=== PATIENT | female | born 1930 | race Caucasian/White ===

== ENCOUNTER 2016-11-30 17:34 | Inpatient (IN) | payer OTHER, MEDICARE ==
[~2016-11-30] VITALS: Ht 160 cm; Wt 82.4 kg
[~2016-11-30 17:34] MED LIST: ATARAX,VISTARIL50 MG PO; AZITHROMYCIN250 MG1 PO; DILTIAZEM 24HR180 MG PO; DILTIAZEM 24HR240 MG PO; ELIQUIS5 MG PO; FUROSEMIDE20 MG PO; MECLIZINE HCL12.5 M1 PO; PAXIL20 MG PO; PAXIL30 MG PO; PREDNISONE20 MG PO; VALIUM2 MG PO
[2016-11-30 18:21] LABS: HEMATOCRIT 40.7 % (36.0-46.0); MCHC 32.7 G/DL (30.0-36.0); MCV 91.9 FL (83-99); MEAN PLAT.VOLUME 10.2 uM^3 (9.5-12.4); PLATELET COUNT 252 K/uL (156-360); RBC DIS.WIDTH-CV 14.5 % (11.8-14.6); RBC DIS.WIDTH-SD 47.5 % (39-53); RED BLOOD COUNT 4.43 M/uL (3.80-5.20); WHITE BLOOD COUNT 11.1 K/uL (4.1-10.2)
[2016-11-30 18:23] LABS: CARBON DIOXIDE (BICARBONATE) 26.6 MEQ/L (20-31)
[2016-11-30 18:32] LABS: CHLORIDE 102 mEq/L (99-109); POTASSIUM 3.6 mEq/L (3.7-5.4); SODIUM 137 mEq/L (136-147)
[2016-11-30 18:34] LABS: GLUCOSE 198 mg/dL (70-99)
[2016-11-30 18:35] LABS: ANION GAP 11 MEQ/L (2-14)
[2016-11-30 18:38] LABS: GFR ESTIMATE (CALCULATED) > 59 mL/min/
[2016-11-30 18:39] LABS: UREA NITROGEN (BUN) 14 mg/dL (9-23)
[2016-11-30 18:43] LABS: TROP-I INTERPRETATION NEGATIVE; TROPONIN-I < 0.01 ng/mL (0.0-0.30)
[2016-11-30] MEDS ORDERED: DILTIAZEM 24HR180 MG PO (20:11)
[2016-11-30] MEDS ORDERED: PAXIL20 MG PO (20:11)
[2016-12-01 04:23] LABS: ADD MIUA? YES; BILIRUBIN NEGATIVE; BLOOD MODERATE; COLOR YELLOW ((YELLOW)); GLUCOSE (STRIP) NEGATIVE; KETONES NEGATIVE; LEUKOCYTES SMALL; NITRITE NEGATIVE; PROTEIN (STRIP) NEGATIVE; SPECIFIC GRAVITY 1.009 (1.000-1.030); UROBILINOGEN 0.2 MG/DL (0.2-1.0)
[2016-12-01 05:20] LABS: BACTERIA RARE; CASTS NONE SEEN /LPF; EPITHELIAL CELLS RARE; MUCUS NONE SEEN; RED BLOOD CELLS 0-5 /HPF (0-5); UCUL ADDED? NO
[2016-12-01 05:21] LABS: AMORPHOUS PHOSPHATE CRYSTALS RARE; CRYSTALS PRESENT
[2016-12-01 06:45] LABS: ANION GAP 10 MEQ/L (2-14); CHLORIDE 108 MEQ/L (99-109); GFR ESTIMATE (CALCULATED) > 59 mL/min/; GLUCOSE 172 mg/dL (70-99); POTASSIUM 3.3 MEQ/L (3.7-5.4); SAMPLE HEMOLYSIS CHECK 0; SAMPLE ICTERIC CHECK 0; SAMPLE LIPEMIA CHECK 0; SODIUM 139 MEQ/L (136-147); UREA NITROGEN (BUN) 11 mg/dL (9-23)
[2016-12-01 17:19] VITALS: BP 128/80
[2016-12-01 19:49] VITALS: BP 116/62
[2016-12-01 23:37] VITALS: BP 152/82
[2016-12-02 06:37] LABS: EOSINOPHIL (%) 0 % (0-5); HEMATOCRIT 35.8 % (36.0-46.0); IMMATURE GRANULOCYTE (%) 0.4 % (0.0-0.7); LYMPHOCYTE COUNT 1.1 K/uL (1.0-2.8); MCHC 31.8 G/DL (30.0-36.0); MCV 94.2 FL (83-99); MEAN PLAT.VOLUME 10.7 uM^3 (9.5-12.4); MONOCYTE (%) 10.3 % (3-12); MONOCYTE COUNT 1.1 K/uL (0-0.8); NEUTROPHIL (%) 78.9 % (45-76); NEUTROPHIL COUNT 8.8 K/uL (1.8-6.4); PLATELET COUNT 222 K/uL (156-360); RBC DIS.WIDTH-SD 51.8 % (39-53); WHITE BLOOD COUNT 11.1 K/uL (4.1-10.2)
[2016-12-02 07:18] LABS: ANION GAP 8 MEQ/L (2-14); CHLORIDE 112 MEQ/L (99-109); GFR ESTIMATE (CALCULATED) > 59 mL/min/; GLUCOSE 139 mg/dL (70-99); SAMPLE HEMOLYSIS CHECK 0; SAMPLE ICTERIC CHECK 0; SAMPLE LIPEMIA CHECK 0; SODIUM 141 MEQ/L (136-147); UREA NITROGEN (BUN) 14 mg/dL (9-23)
[2016-12-02 07:22] LABS: POTASSIUM 4.5 MEQ/L (3.7-5.4)
[2016-12-02 07:56] VITALS: BP 120/94
[2016-12-02 12:38] VITALS: BP 109/67
[2016-12-02 15:21] VITALS: BP 112/68
[2016-12-02 19:44] VITALS: BP 121/77
[2016-12-03 00:31] VITALS: BP 128/95
[2016-12-03 04:30] VITALS: BP 129/94
[2016-12-03 07:09] LABS: EOSINOPHIL (%) 0.3 % (0-5); HEMATOCRIT 38.2 % (36.0-46.0); IMMATURE GRANULOCYTE (%) 0.4 % (0.0-0.7); IMMATURE GRANULOCYTE COUNT 0.1 K/uL; LYMPHOCYTE COUNT 2.6 K/uL (1.0-2.8); MCH 29.2 PG (29.0-34.0); MCHC 31.2 G/DL (30.0-36.0); MCV 93.9 FL (83-99); MEAN PLAT.VOLUME 10.5 uM^3 (9.5-12.4); MONOCYTE (%) 10.5 % (3-12); MONOCYTE COUNT 1.5 K/uL (0-0.8); NEUTROPHIL (%) 70.3 % (45-76); NEUTROPHIL COUNT 9.8 K/uL (1.8-6.4); PLATELET COUNT 264 K/uL (156-360); RBC DIS.WIDTH-CV 15.1 % (11.8-14.6); RBC DIS.WIDTH-SD 52.4 % (39-53); RED BLOOD COUNT 4.07 M/uL (3.80-5.20); WHITE BLOOD COUNT 13.9 K/uL (4.1-10.2)
[2016-12-03 07:36] LABS: ANION GAP 9 MEQ/L (2-14); CHLORIDE 106 MEQ/L (99-109); GFR ESTIMATE (CALCULATED) > 59 mL/min/; POTASSIUM 4.1 MEQ/L (3.7-5.4); SAMPLE HEMOLYSIS CHECK 0; SAMPLE ICTERIC CHECK 0; SAMPLE LIPEMIA CHECK 0; SODIUM 142 MEQ/L (136-147); UREA NITROGEN (BUN) 19 mg/dL (9-23)
[2016-12-03 07:38] LABS: GLUCOSE 93 mg/dL (70-99)
[2016-12-03 07:50] VITALS: BP 123/86
[2016-12-03 11:44] VITALS: BP 160/84
[2016-12-03 15:11] VITALS: BP 112/67
[2016-12-03 19:00] VITALS: BP 106/78
[2016-12-04] VITALS (7 sets, daily range): BP systolic 97–131; BP diastolic 55–87
[2016-12-04 13:02] LABS: ALKALINE PHOSPHATASE 70 IU/L (3-129); ANION GAP 14 MEQ/L (2-14); CHLORIDE 99 MEQ/L (99-109); GFR ESTIMATE (CALCULATED) > 59 mL/min/; GLUCOSE 125 mg/dL (70-99); SAMPLE HEMOLYSIS CHECK 0; SAMPLE ICTERIC CHECK 0; SAMPLE LIPEMIA CHECK 0; SODIUM 140 MEQ/L (136-147); TOTAL BILIRUBIN 0.4 MG/DL (0.0-1.0); UREA NITROGEN (BUN) 17 mg/dL (9-23)
[2016-12-05 04:44] VITALS: BP 100/57
[2016-12-05 06:48] LABS: HEMATOCRIT 38.3 % (36.0-46.0); MCH 29.4 PG (29.0-34.0); MCHC 31.3 G/DL (30.0-36.0); MCV 93.9 FL (83-99); MEAN PLAT.VOLUME 10.6 uM^3 (9.5-12.4); PLATELET COUNT 284 K/uL (156-360); RBC DIS.WIDTH-CV 14.7 % (11.8-14.6); RBC DIS.WIDTH-SD 50.6 % (39-53); RED BLOOD COUNT 4.08 M/uL (3.80-5.20); WHITE BLOOD COUNT 11.8 K/uL (4.1-10.2)
[2016-12-05 07:31] VITALS: BP 118/66
[2016-12-05 07:37] LABS: EOSINOPHIL (%) 0.9 % (0-5); EOSINOPHIL COUNT 0.1 K/uL (0-0.3); HEMATOLOGY COMMENT 1 SMEAR COMPATIBLE; IMMATURE GRANULOCYTE (%) 2.2 % (0.0-0.7); IMMATURE GRANULOCYTE COUNT 0.3 K/uL; LYMPHOCYTE COUNT 3.4 K/uL (1.0-2.8); MONOCYTE (%) 10.3 % (3-12); MONOCYTE COUNT 1.2 K/uL (0-0.8); NEUTROPHIL (%) 57.4 % (45-76); NEUTROPHIL COUNT 6.7 K/uL (1.8-6.4); USER ID CCL
[2016-12-05 11:49] VITALS: BP 111/74
[2016-12-05 15:26] VITALS: BP 102/64
[2016-12-05 19:00] VITALS: BP 116/62
[2016-12-05 23:00] VITALS: BP 93/55
[2016-12-06 03:00] VITALS: BP 123/71
[2016-12-06 06:12] LABS: HEMATOCRIT 37.6 % (36.0-46.0); MCH 29.3 PG (29.0-34.0); MCHC 31.1 G/DL (30.0-36.0); MEAN PLAT.VOLUME 10.3 uM^3 (9.5-12.4); PLATELET COUNT 297 K/uL (156-360); RBC DIS.WIDTH-CV 14.8 % (11.8-14.6); RBC DIS.WIDTH-SD 50.7 % (39-53); WHITE BLOOD COUNT 11.4 K/uL (4.1-10.2)
[2016-12-06 06:28] LABS: EOSINOPHIL (%) 1.4 % (0-5); EOSINOPHIL COUNT 0.2 K/uL (0-0.3); IMMATURE GRANULOCYTE COUNT 0.2 K/uL; LYMPHOCYTE COUNT 3.6 K/uL (1.0-2.8); MONOCYTE (%) 11.3 % (3-12); MONOCYTE COUNT 1.3 K/uL (0-0.8); NEUTROPHIL (%) 53.7 % (45-76); NEUTROPHIL COUNT 6.1 K/uL (1.8-6.4)
[2016-12-06 06:46] LABS: ALKALINE PHOSPHATASE 55 IU/L (3-129); ANION GAP 10 MEQ/L (2-14); CHLORIDE 99 MEQ/L (99-109); GFR ESTIMATE (CALCULATED) > 59 mL/min/; POTASSIUM 3.7 MEQ/L (3.7-5.4); SAMPLE HEMOLYSIS CHECK 0; SAMPLE ICTERIC CHECK 0; SAMPLE LIPEMIA CHECK 0; SODIUM 144 MEQ/L (136-147); UREA NITROGEN (BUN) 14 mg/dL (9-23)
[2016-12-06 06:48] LABS: GLUCOSE 86 mg/dL (70-99); TOTAL BILIRUBIN 0.3 MG/DL (0.0-1.0)
[2016-12-06 08:10] VITALS: BP 120/90
[2016-12-06 12:10] VITALS: BP 116/70
[2016-12-06 19:30] VITALS: BP 142/91
[2016-12-06 23:00] VITALS: BP 141/62
[2016-12-07 03:30] VITALS: BP 116/59
[2016-12-07 05:29] LABS: HEMATOCRIT 37.9 % (36.0-46.0); MCH 29.4 PG (29.0-34.0); MCHC 31.1 G/DL (30.0-36.0); MCV 94.3 FL (83-99); PLATELET COUNT 320 K/uL (156-360); RBC DIS.WIDTH-CV 14.7 % (11.8-14.6); RBC DIS.WIDTH-SD 50.3 % (39-53); RED BLOOD COUNT 4.02 M/uL (3.80-5.20)
[2016-12-07 06:05] LABS: ANION GAP 8 MEQ/L (2-14); CHLORIDE 100 MEQ/L (99-109); GFR ESTIMATE (CALCULATED) > 59 mL/min/; GLUCOSE 90 mg/dL (70-99); SAMPLE HEMOLYSIS CHECK 1; SAMPLE ICTERIC CHECK 0; SAMPLE LIPEMIA CHECK 0; SODIUM 143 MEQ/L (136-147); UREA NITROGEN (BUN) 16 mg/dL (9-23)
[2016-12-07 06:11] LABS: POTASSIUM 4.8 MEQ/L (3.7-5.4)
[2016-12-07 06:13] LABS: EOSINOPHIL (%) 0.8 % (0-5); EOSINOPHIL COUNT 0.1 K/uL (0-0.3); IMMATURE GRANULOCYTE (%) 2.7 % (0.0-0.7); IMMATURE GRANULOCYTE COUNT 0.4 K/uL; MONOCYTE (%) 10.4 % (3-12); MONOCYTE COUNT 1.4 K/uL (0-0.8); NEUTROPHIL (%) 62.8 % (45-76); NEUTROPHIL COUNT 8.2 K/uL (1.8-6.4)
[2016-12-07 07:09] LABS: HEMATOLOGY COMMENT 1 SMEAR COMPATIBLE; USER ID CL
[2016-12-07 07:32] VITALS: BP 140/82
[2016-12-07 12:28] VITALS: BP 122/79
[2016-12-07 16:03] VITALS: BP 120/65
[2016-12-07 19:00] VITALS: BP 105/73
[2016-12-07 23:00] VITALS: BP 95/54
[2016-12-08 03:00] VITALS: BP 112/69
[2016-12-08 06:55] LABS: HEMATOCRIT 38.3 % (36.0-46.0); MCHC 31.9 G/DL (30.0-36.0); MCV 94.3 FL (83-99); MEAN PLAT.VOLUME 10.4 uM^3 (9.5-12.4); PLATELET COUNT 325 K/uL (156-360); RBC DIS.WIDTH-CV 14.9 % (11.8-14.6); RBC DIS.WIDTH-SD 50.6 % (39-53); RED BLOOD COUNT 4.06 M/uL (3.80-5.20); WHITE BLOOD COUNT 12.9 K/uL (4.1-10.2)
[2016-12-08 07:06] VITALS: BP 143/75
[2016-12-08 07:10] LABS: EOSINOPHIL (%) 1.2 % (0-5); EOSINOPHIL COUNT 0.2 K/uL (0-0.3); IMMATURE GRANULOCYTE (%) 2.8 % (0.0-0.7); IMMATURE GRANULOCYTE COUNT 0.4 K/uL; LYMPHOCYTE COUNT 4.2 K/uL (1.0-2.8); MONOCYTE (%) 7.2 % (3-12); MONOCYTE COUNT 0.9 K/uL (0-0.8); NEUTROPHIL COUNT 7.2 K/uL (1.8-6.4)
[2016-12-08 07:26] LABS: ALKALINE PHOSPHATASE 52 IU/L (3-129); ANION GAP 8 MEQ/L (2-14); CHLORIDE 102 MEQ/L (99-109); GFR ESTIMATE (CALCULATED) > 59 mL/min/; GLUCOSE 86 mg/dL (70-99); POTASSIUM 3.9 MEQ/L (3.7-5.4); SAMPLE HEMOLYSIS CHECK 0; SAMPLE ICTERIC CHECK 0; SAMPLE LIPEMIA CHECK 0; SODIUM 144 MEQ/L (136-147); TOTAL BILIRUBIN 0.3 MG/DL (0.0-1.0); UREA NITROGEN (BUN) 15 mg/dL (9-23)
[2016-12-08 08:16] LABS: HEMATOLOGY COMMENT 1 SMEAR COMPATIBLE; PLAT.SUFFICIENCY ADEQUATE; USER ID TLW
[2016-12-08 11:57] VITALS: BP 112/77
[2016-12-08] MEDS ORDERED: SPIRIVA RESPIMAT4 GM IH (15:22)
[2016-12-08] MEDS ORDERED: PREDNISONE10 MG PO (15:22)
[2016-12-08] MEDS ORDERED: XOPENEX1.25 MG/0. AEROSOL (15:22)
[2016-12-08] MEDS ORDERED: ADVAIR HFA120 INHALA IH (15:22)
[2016-12-08] MEDS ORDERED: DIGOXIN250 MCG PO (15:22)
[2016-12-08] MEDS ORDERED: XOPENEX HF200 INHALA IH (16:23)
[2016-12-08 16:57] VITALS: BP 120/85
== END 2016-12-08 17:45 | disposition home or self-care (01) | DRG 189 ==
LOC: EME 17:34 → 5SOUTH 21:32 → EDOF 21:32 → 5SOUTH 12-01 15:57 → 4EAST 12-03 14:17
PROVIDERS: Emergency Medicine; Family Medicine; Hospitalist; Internal Medicine
DX: J96.01 Acute respiratory failure with hypoxia (principal); I50.31 Acute diastolic (congestive) heart failure; J44.1 Chronic obstructive pulmonary disease with (acute) exacerbation; I48.0 Paroxysmal atrial fibrillation; E87.6 Hypokalemia; I25.10 Atherosclerotic heart disease of native coronary artery without angina pectoris; F32.9 Major depressive disorder, single episode, unspecified; Z79.01 Long term (current) use of anticoagulants; Z87.891 Personal history of nicotine dependence
CPT/HCPCS: 71020; 80048; 80053; 81003; 82803; 83605; 83880; 84443; 84484; 85025; 85027; 87040; 87070; 87086; 87205; 93005; 94640; 94640 76; 94760; 94799; 99202; 99281; 99285; J0696; J1940; J1956; J2930; J7030; J7050; J7512

== ENCOUNTER 2018-04-02 21:20 | Inpatient (IN) | payer OTHER, MEDICARE ==
[~2018-04-02] VITALS: Ht 160 cm; Wt 73.5 kg
[~2018-04-02 21:20] MED LIST changes: +ADVAIR HFA120 INHALA IH; +DIGOXIN250 MCG PO; +OMEPRAZOLE20 MG PO; +PREDNISONE10 MG PO; +SPIRIVA RESPIMAT4 GM IH; +XOPENEX HF200 INHALA IH; +XOPENEX1.25 MG/0. AEROSOL
[2018-04-02 22:01] LABS: BASE EXCESS -0.2 mEq/L (-3 to +3); BICARBONATE 25.4 mEq/L (22-26); CARBOXY HGB 1.4 % (0-5); COMMENTS - BLOOD GASES A+C+; DEVICE HHFLNC; FI02 100 %; METHEMOGLOBIN 1.2 % (0-1.5); O2 FLOW 50 L/MIN; PCO2 44 mm Hg (35-45); PO2 277 mm Hg (80-100); SITE RR; TOTAL RESP RATE 29 resp/min; pH 7.37 (7.35-7.45)
[2018-04-02 22:29] LABS: BASOPHIL (%) 0.3 % (0-1); EOSINOPHIL (%) 0.9 % (0-5); EOSINOPHIL COUNT 0.1 K/uL (0-0.3); HEMATOCRIT 43.6 % (36.0-46.0); HEMOGLOBIN 14.2 G/DL (11.9-15.5); IMMATURE GRANULOCYTE (%) 0.4 % (0.0-0.7); LYMPHOCYTE (%) 9.4 % (15-42); MCHC 32.6 G/DL (30.0-36.0); MCV 92.2 FL (83-99); MONOCYTE (%) 6.8 % (3-12); MONOCYTE COUNT 0.8 K/uL (0-0.8); NEUTROPHIL (%) 82.2 % (45-76); NEUTROPHIL COUNT 9.1 K/uL (1.8-6.4); PLATELET COUNT 316 K/uL (156-360); RBC DIS.WIDTH-CV 14.6 % (11.8-14.6); RBC DIS.WIDTH-SD 50.3 % (39-53); RED BLOOD COUNT 4.73 M/uL (3.80-5.20)
[2018-04-02 22:36] LABS: INTER. NORMALIZED RATIO 1.5
[2018-04-02 22:39] LABS: PTT 32.3 SEC (25-37)
[2018-04-02 22:41] LABS: ALBUMIN 4.2 g/dL (3.2-4.8); CHLORIDE 105 mEq/L (99-109); POTASSIUM 3.9 mEq/L (3.7-5.4); SODIUM 143 mEq/L (136-147)
[2018-04-02 22:42] LABS: MAGNESIUM 2.1 mg/dL (1.3-2.7)
[2018-04-02 22:43] LABS: GLUCOSE 113 mg/dL (70-99); TOTAL PROTEIN 7.1 g/dL (6.4-8.3)
[2018-04-02 22:45] LABS: TOTAL BILIRUBIN 0.4 mg/dL (0.0-1.0)
[2018-04-02 22:47] LABS: ALKALINE PHOSPHATASE 74 IU/L (3-129); CREATININE 0.9 mg/dL (0.6-1.3); GFR ESTIMATE (CALCULATED) > 59 mL/min/
[2018-04-02 22:48] LABS: UREA NITROGEN (BUN) 19 mg/dL (9-23)
[2018-04-02 22:49] LABS: AST (GOT) 23 IU/L (2-34)
[2018-04-02 22:50] LABS: ALT (GPT) 13 IU/L (3-49)
[2018-04-02 22:54] LABS: TROP-I INTERPRETATION NEGATIVE; TROPONIN-I 0.02 ng/mL (0.0-0.30)
[2018-04-02 22:56] LABS: DIGOXIN < 0.3 ng/mL (0.8-2.0)
[2018-04-02] MEDS ORDERED: PAROXETINE HCL10 MG PO (23:59)
[2018-04-03] VITALS (8 sets, daily range): BP systolic 102–144; BP diastolic 53–85
[2018-04-03] MEDS ORDERED: VITAMIN D2000 UNIT PO (00:04)
[2018-04-03] MEDS ORDERED: VITAMIN B-122500 MCG SL (00:06)
[2018-04-03 05:57] LABS: BASOPHIL (%) 0.3 % (0-1); EOSINOPHIL (%) 0 % (0-5); HEMATOCRIT 41.2 % (36.0-46.0); HEMOGLOBIN 12.8 G/DL (11.9-15.5); IMMATURE GRANULOCYTE (%) 0.1 % (0.0-0.7); LYMPHOCYTE (%) 7.4 % (15-42); LYMPHOCYTE COUNT 0.5 K/uL (1.0-2.8); MCH 28.8 PG (29.0-34.0); MCHC 31.1 G/DL (30.0-36.0); MCV 92.8 FL (83-99); MONOCYTE (%) 7.4 % (3-12); MONOCYTE COUNT 0.5 K/uL (0-0.8); NEUTROPHIL (%) 84.8 % (45-76); NEUTROPHIL COUNT 6.1 K/uL (1.8-6.4); PLATELET COUNT 278 K/uL (156-360); RBC DIS.WIDTH-CV 14.6 % (11.8-14.6); RED BLOOD COUNT 4.44 M/uL (3.80-5.20); WHITE BLOOD COUNT 7.2 K/uL (4.1-10.2)
[2018-04-03 06:26] LABS: CHLORIDE 107 MEQ/L (99-109); CREATININE 0.7 MG/DL (0.6-1.3); GFR ESTIMATE (CALCULATED) > 59 mL/min/; GLUCOSE 126 mg/dL (70-99); POTASSIUM 3.9 MEQ/L (3.7-5.4); SODIUM 140 MEQ/L (136-147); UREA NITROGEN (BUN) 14 mg/dL (9-23)
[2018-04-04 03:50] VITALS: BP 122/75
[2018-04-04 05:56] LABS: HEMATOCRIT 37.8 % (36.0-46.0); HEMOGLOBIN 11.9 G/DL (11.9-15.5); MCHC 31.5 G/DL (30.0-36.0); MCV 92.2 FL (83-99); PLATELET COUNT 283 K/uL (156-360); RBC DIS.WIDTH-CV 14.6 % (11.8-14.6); RBC DIS.WIDTH-SD 49.6 % (39-53); WHITE BLOOD COUNT 8.3 K/uL (4.1-10.2)
[2018-04-04 06:24] LABS: CHLORIDE 105 MEQ/L (99-109); CREATININE 0.7 MG/DL (0.6-1.3); GFR ESTIMATE (CALCULATED) > 59 mL/min/; GLUCOSE 137 mg/dL (70-99); POTASSIUM 3.9 MEQ/L (3.7-5.4); SODIUM 139 MEQ/L (136-147); UREA NITROGEN (BUN) 20 mg/dL (9-23)
[2018-04-04 08:26] VITALS: BP 105/57
[2018-04-04 10:51] VITALS: BP 99/57
[2018-04-04 16:32] VITALS: BP 122/61
[2018-04-04 19:58] VITALS: BP 128/72
[2018-04-05] VITALS (7 sets, daily range): BP systolic 111–158; BP diastolic 62–81
[2018-04-06 03:45] VITALS: BP 138/75; BP 156/81
[2018-04-06 05:35] LABS: HEMATOCRIT 41.5 % (36.0-46.0); MCH 29.2 PG (29.0-34.0); MCHC 31.3 G/DL (30.0-36.0); MCV 93.3 FL (83-99); PLATELET COUNT 363 K/uL (156-360); RBC DIS.WIDTH-CV 14.6 % (11.8-14.6); RBC DIS.WIDTH-SD 50.4 % (39-53); RED BLOOD COUNT 4.45 M/uL (3.80-5.20); WHITE BLOOD COUNT 11.8 K/uL (4.1-10.2)
[2018-04-06 06:05] LABS: CHLORIDE 103 MEQ/L (99-109); CREATININE 0.7 MG/DL (0.6-1.3); GFR ESTIMATE (CALCULATED) > 59 mL/min/; GLUCOSE 131 mg/dL (70-99); SODIUM 141 MEQ/L (136-147); UREA NITROGEN (BUN) 15 mg/dL (9-23)
[2018-04-06 06:09] LABS: POTASSIUM 4.7 MEQ/L (3.7-5.4)
[2018-04-06 07:36] VITALS: BP 120/73
[2018-04-06 11:55] VITALS: BP 112/59
[2018-04-06 19:00] VITALS: BP 133/92
[2018-04-07 00:38] VITALS: BP 126/72
[2018-04-07 03:37] VITALS: BP 125/85
[2018-04-07 05:25] LABS: BASOPHIL (%) 0.3 % (0-1); EOSINOPHIL (%) 0.1 % (0-5); HEMATOCRIT 39.7 % (36.0-46.0); HEMOGLOBIN 12.5 G/DL (11.9-15.5); IMMATURE GRANULOCYTE (%) 1.2 % (0.0-0.7); LYMPHOCYTE (%) 15.1 % (15-42); LYMPHOCYTE COUNT 1.7 K/uL (1.0-2.8); MCH 29.4 PG (29.0-34.0); MCHC 31.5 G/DL (30.0-36.0); MCV 93.4 FL (83-99); MONOCYTE (%) 9.2 % (3-12); NEUTROPHIL (%) 74.1 % (45-76); NEUTROPHIL COUNT 8.1 K/uL (1.8-6.4); PLATELET COUNT 340 K/uL (156-360); RBC DIS.WIDTH-CV 14.7 % (11.8-14.6); RBC DIS.WIDTH-SD 50.4 % (39-53); RED BLOOD COUNT 4.25 M/uL (3.80-5.20)
[2018-04-07 05:49] LABS: ALBUMIN 3.4 G/DL (3.2-4.8); ALKALINE PHOSPHATASE 46 IU/L (3-129); ALT (GPT) 37 IU/L (3-49); AST (GOT) 33 IU/L (2-34); CHLORIDE 104 MEQ/L (99-109); CREATININE 0.7 MG/DL (0.6-1.3); GFR ESTIMATE (CALCULATED) > 59 mL/min/; GLUCOSE 102 mg/dL (70-99); POTASSIUM 4.5 MEQ/L (3.7-5.4); SODIUM 142 MEQ/L (136-147); TOTAL BILIRUBIN 0.3 MG/DL (0.0-1.0); TOTAL PROTEIN 5.5 G/DL (6.4-8.3); UREA NITROGEN (BUN) 21 mg/dL (9-23)
[2018-04-07 08:23] VITALS: BP 152/76
[2018-04-07] MEDS ORDERED: DILTIAZEM 24HR240 MG PO (12:40)
[2018-04-07] MEDS ORDERED: VENTOLIN HFA18 GM IH (12:40)
[2018-04-07] MEDS ORDERED: PREDNISONE10 MG PO (12:40)
[2018-04-07] MEDS ORDERED: DULERA 100 MCG/13 GM IH (12:40)
[2018-04-07] MEDS ORDERED: SPIRIVA RESPIMAT4 GM IH (12:40)
[2018-04-07] MEDS ORDERED: DOXYCYCLINE HY100 M3 PO (12:40)
[2018-04-07] MEDS ORDERED: ADVAIR HFA120 INHALA IH (14:20)
[2018-04-07] MEDS ORDERED: INCRUSE ELLI62.5 MCG IH (14:21)
[2018-04-07] MEDS ORDERED: BREO ELLIPTA I1 EACH IH (14:53)
== END 2018-04-07 16:26 | disposition home health service (06) | DRG 871 ==
LOC: EME 21:20 → EDOF 04-03 01:01 → 4EAST 04-03 01:01 → ENRESERV 04-03 01:02 → 4EAST 04-03 01:39 → ENPENDDIS 04-07 → 4EAST 04-07 16:26
PROVIDERS: Emergency Medicine; Family Medicine; Hospitalist
DX: A41.9 Sepsis, unspecified organism (principal); J15.9 Unspecified bacterial pneumonia; J96.01 Acute respiratory failure with hypoxia; J44.0 Chronic obstructive pulmonary disease with (acute) lower respiratory infection; J44.1 Chronic obstructive pulmonary disease with (acute) exacerbation; I27.20 Pulmonary hypertension, unspecified; I48.2 Chronic atrial fibrillation; I50.32 Chronic diastolic (congestive) heart failure; J98.11 Atelectasis; F32.9 Major depressive disorder, single episode, unspecified; E89.0 Postprocedural hypothyroidism; Z80.1 Family history of malignant neoplasm of trachea, bronchus and lung; Z82.3 Family history of stroke; Z87.891 Personal history of nicotine dependence
CPT/HCPCS: 36600; 71045; 71250; 80048; 80053; 80162; 82803; 83605; 83735; 83880; 84484; 85025; 85027; 85610; 85730; 87040; 87070; 87081; 87205; 87449; 87502; 87641; 93005; 94010; 94640; 94640 76; 94760; 94799; 97530 GO; 97530 GP; 99202; 99281; 99285; J0456; J0696; J1160; J2920; J2930; J3370; J3475; J7030; J7512

== ENCOUNTER 2018-05-11 18:25 | Observation (INO) | payer OTHER, MEDICARE ==
[~2018-05-11] VITALS: Ht 160 cm; Wt 76.5 kg
[~2018-05-11 18:25] MED LIST changes: +BREO ELLIPTA I1 EACH IH; +DOXYCYCLINE HY100 M3 PO; +DULERA 100 MCG/13 GM IH; +INCRUSE ELLI62.5 MCG IH; +PAROXETINE HCL10 MG PO; +VENTOLIN HFA18 GM IH; +VITAMIN B-122500 MCG SL; +VITAMIN D2000 UNIT PO
[2018-05-11 19:05] LABS: HEMATOCRIT 36.2 % (36.0-46.0); HEMOGLOBIN 11.9 G/DL (11.9-15.5); MCHC 32.9 G/DL (30.0-36.0); MCV 91.2 FL (83-99); PLATELET COUNT 694 K/uL (156-360); RBC DIS.WIDTH-CV 14.5 % (11.8-14.6); RBC DIS.WIDTH-SD 48.7 % (39-53); RED BLOOD COUNT 3.97 M/uL (3.80-5.20); WHITE BLOOD COUNT 9.5 K/uL (4.1-10.2)
[2018-05-11 19:15] LABS: CHLORIDE 107 mEq/L (99-109); POTASSIUM 3.8 mEq/L (3.7-5.4); SODIUM 139 mEq/L (136-147)
[2018-05-11 19:16] LABS: GLUCOSE 136 mg/dL (70-99)
[2018-05-11 19:20] LABS: CREATININE 0.8 mg/dL (0.6-1.3); GFR ESTIMATE (CALCULATED) > 59 mL/min/
[2018-05-11 19:21] LABS: UREA NITROGEN (BUN) 15 mg/dL (9-23)
[2018-05-11 19:27] LABS: TROP-I INTERPRETATION NEGATIVE; TROPONIN-I 0.02 ng/mL (0.0-0.30)
[2018-05-11] MEDS ORDERED: SERTRALINE HCL50 MG PO (21:56)
[2018-05-11] MEDS ORDERED: CARDIZEM CD,CA180 MG PO (21:56)
[2018-05-12 00:24] VITALS: BP 110/64
[2018-05-12 04:08] VITALS: BP 134/74
[2018-05-12 05:10] LABS: BASOPHIL (%) 0.5 % (0-1); BASOPHIL COUNT 0.1 K/uL (0-0.1); EOSINOPHIL (%) 1.2 % (0-5); EOSINOPHIL COUNT 0.1 K/uL (0-0.3); HEMATOCRIT 35.6 % (36.0-46.0); HEMOGLOBIN 10.9 G/DL (11.9-15.5); IMMATURE GRANULOCYTE (%) 0.4 % (0.0-0.7); LYMPHOCYTE (%) 17.4 % (15-42); LYMPHOCYTE COUNT 1.6 K/uL (1.0-2.8); MCH 28.4 PG (29.0-34.0); MCHC 30.6 G/DL (30.0-36.0); MCV 92.7 FL (83-99); MONOCYTE (%) 10.9 % (3-12); NEUTROPHIL (%) 69.6 % (45-76); NEUTROPHIL COUNT 6.4 K/uL (1.8-6.4); PLATELET COUNT 685 K/uL (156-360); RBC DIS.WIDTH-CV 14.6 % (11.8-14.6); RBC DIS.WIDTH-SD 49.1 % (39-53); RED BLOOD COUNT 3.84 M/uL (3.80-5.20); WHITE BLOOD COUNT 9.2 K/uL (4.1-10.2)
[2018-05-12 05:35] LABS: ALBUMIN 3.6 G/DL (3.2-4.8); ALKALINE PHOSPHATASE 51 IU/L (3-129); ALT (GPT) 13 IU/L (3-49); AST (GOT) 18 IU/L (2-34); CHLORIDE 109 MEQ/L (99-109); CREATININE 0.8 MG/DL (0.6-1.3); DIRECT BILIRUBIN 0.1 mg/dL (0.0-0.3); GFR ESTIMATE (CALCULATED) > 59 mL/min/; POTASSIUM 4.3 MEQ/L (3.7-5.4); SODIUM 142 MEQ/L (136-147); TOTAL BILIRUBIN 0.4 MG/DL (0.0-1.0); TOTAL PROTEIN 5.8 G/DL (6.4-8.3); UREA NITROGEN (BUN) 15 mg/dL (9-23)
[2018-05-12 05:40] LABS: GLUCOSE 98 mg/dL (70-99)
[2018-05-12 07:00] VITALS: BP 126/75
[2018-05-12] MEDS ORDERED: FLUOXETINE HCL10 MG PO (14:31)
== END 2018-05-12 15:26 | disposition home or self-care (01) ==
LOC: EME 18:25 → EDOF 22:20 → 4SOUTH 22:20 → EDOF 22:20 → ENRESERV 22:20 → 4SOUTH 23:52 → ENPENDDIS 05-12 14:02 → 4SOUTH 05-12 15:26
PROVIDERS: Emergency Medicine; Hospitalist
DX: R55 Syncope and collapse (principal); R42 Dizziness and giddiness; F33.9 Major depressive disorder, recurrent, unspecified; I48.1 Persistent atrial fibrillation; I48.2 Chronic atrial fibrillation; I50.30 Unspecified diastolic (congestive) heart failure; J44.9 Chronic obstructive pulmonary disease, unspecified; I45.10 Unspecified right bundle-branch block; Z87.891 Personal history of nicotine dependence; I35.0 Nonrheumatic aortic (valve) stenosis; Z79.01 Long term (current) use of anticoagulants; R19.7 Diarrhea, unspecified; Z87.01 Personal history of pneumonia (recurrent); Z80.1 Family history of malignant neoplasm of trachea, bronchus and lung; Z84.1 Family history of disorders of kidney and ureter; Z82.3 Family history of stroke; Z88.0 Allergy status to penicillin
CPT/HCPCS: 70450; 71045; 73130; 80048; 80076; 84484; 85025; 85027; 93005; 94640; 94799; 99202; 99281; 99284; G0378; J7030